=== PATIENT | male | born 1990 | race Caucasian/White ===

== ENCOUNTER 2022-08-16 17:16 | Emergency (ER) | payer BC, SELFPAY ==
[2022-08-16 17:17] VITALS: BP 153/92; PULSE 73; RESP 38; TEMP 36.6; O2SAT 96
[2022-08-16 17:20] VITALS: BP 153/92; PULSE 69
[2022-08-16] MEDS: Ketorolac 30 MG/ML VIAL IVP (17:26)
--- NOTE | 2022-08-16 17:45 | DI.CT_ITS ---
Exam(s) CT RENAL COLIC WO EXAM: CT RENAL COLIC WO CLINICAL HISTORY: pain left flank. TECHNIQUE: Imaging Protocol: Axial computed tomography images with coronal and sagittal reformatted images were created and reviewed. CONTRAST MATERIAL: Noncontrast COMPARISON: No exams were available for comparison FINDINGS: ABDOMEN: Lung Bases: Normal where visualized. Liver: Normal attenuation. No measurable mass. Gallbladder and biliary tract: No radiodense calculus or dilation. Pancreas: Normal density, no calcifications or inflammatory process. Spleen: Normal. Kidneys: Normal size, contour and axis. Mild left hydronephrosis secondary to a 4 millimeters stone i n the upper left ureter.. No masses seen. Adrenal glands: No masses seen. Abdominal Aorta: Abdominal portion non-dilated. PELVIS: Bladder: Symmetric distention, no gross wall thickening. No evidence of stones.No visible mass. Bowel: No obstruction or bowel wall thickening. Reproductive: Peritoneal cavity: No ascites, collection or mesenteric inflammatory response. Bones: Unremarkable for age.. IMPRESSION: Mild left hydronephrosis secondary to 4 millimeters stone in the upper left ureter.. RADIATION DOSE DELIVERED: 1,109.02mGy.cm Total DLP DATA REPOSITORY: All CT scans at this facility are submitted to the National Radiology Data Registry (NRDR) Dose Index Registry (DIR) with the [employer] (A[employer]). RADIATION OPTIMIZATION: All CT scans at this facility use at least one of these dose optimization te chniques: automated exposure control; mA and/or kV adjustment per patient size (includes targeted exa ms where dose is matched to clinical indication); or iterative reconstruction.
[2022-08-16 17:49] LABS: Abs Immature Grans 0.03 10^3/uL (0.0-0.06); Absolute Basophil Count 0.08 10^3/uL (0.0-0.2); Absolute Eosinophil Count 0.07 10^3/uL (0.0-0.7); Absolute Lymphocyte Count 1.63 10^3/uL (1.2-3.4); Absolute Monocyte Count 0.64 10^3/uL (0.1-0.8); Absolute Neutrophil Count 7.49 10^3/uL (1.2-6.7); Basophils % 0.8; Eosinophils % 0.7; HCT 42.1 % (40.0-50.0); HGB 14.2 g/dL (13.5-17.5); Immature Grans % 0.3; Lymphocytes % 16.4; MCH 29.4 pg (27.0-33.0); MCHC 33.7 % (32.0-36.0); MCV 87 fL (80-95); MPV 8.8 fL (8.0-11.0); Monocytes % 6.4; Neutrophils % 75.4; Platelet Count 277 10^3/uL (130-400); RBC 4.83 10^6/uL (4.36-5.78); RDW 12.2 % (11.8-14.1); WBC 9.94 10^3/uL (4.4-10.8)
--- NOTE | 2022-08-16 17:52 | W.ED.GENAD ---
Discharge Plan Disposition Patient Disposition: Home Condition: Stable Discharge Details Clinical Impression: Ureterolithiasis ED Provider: Ahmet Lopez Home Meds and New Rx's Prescriptions: New tamsulosin [Flomax] 0.4 mg capsule 0.4 mg PO DAILY Qty: 30 0RF ondansetron 4 mg tablet,disintegrating 4 mg PO Q8H PRN (Reason: nausea and vomiting) Qty: 10 0RF Discharge Instructions Instructions: Ondansetron (By mouth), Kidney Stones (ED), How to Strain Your Urine (ED) Additional Instructions: Please take ibuprofen over the counter. Take 600mg by mouth every 6 hours as needed for pain. Please take acetaminophen (tylenol) - 650mg every 6 hours by mouth as needed for pain. Please follow-up with urology. Call on Thursday. Please contact your primary care physician to arrange follow-up. Return to the ER immediately for any worsening or new concerning symptoms. Referrals: Devonte Gruber MD [ [facility] STAFF PHYSICIAN] - Medical Decision Making 1753??31-year-old male presents with rather sudden onset left flank and abdominal pain radiating into his groin. History and exam most consistent with acute renal stone. Plan to obtain CT of the abdomen pelvis. Patient received fentanyl intranasal and IV as well as Zofran ODT by EMS prior to arrival. I will give Toradol 30 mg IV for pain. Zofran for nausea. -- CT of the abdomen pelvis was interpreted by radiology: 4 mm stone mid ureter on the left. I independently reviewed the CT imaging. Patient was given acetaminophen 1 g IV and Dilaudid 1 mg IV for pain. Flomax given. On reassessment, patient noted significant improvement in pain and nausea. Plan for discharge with outpatient follow-up with urology should pain persist. I will provide strainer for urine. Usual customary discharge instructions reviewed with the patient. HPI General Mode of arrival: EMS. Date/Time Provider Initiated Documentation: 08/16/22 17:17. Limitations to Documentation: no limitations. Information obtained by: patient and EMS. HPI Narrative: 31-year-old male with rather sudden onset left sided flank and abdominal pain that radiates into his groin. Symptoms started around 330 today and have persisted. Pain is severe and sharp. No prior history of renal stone. He notes associated nausea and vomiting today. He did have loose stool yesterday. Related Data Home Medications Medication Instructions Recorded Confirmed ondansetron 4 mg disintegrating 4 mg PO Q8H PRN nausea and 08/16/22 tablet vomiting #10 tabs tamsulosin 0.4 mg capsule (Flomax) 0.4 mg PO DAILY #30 caps 08/16/22 Previous Rx's Medication Instructions Recorded ondansetron 4 mg disintegrating 4 mg PO Q8H PRN nausea and 08/16/22 tablet vomiting #10 tabs tamsulosin 0.4 mg capsule (Flomax) 0.4 mg PO DAILY #30 caps 08/16/22 Allergies Allergy/AdvReac Type Severity Reaction Status Date / Time No Known Allergies Allergy Unverified 08/16/22 17:48 General Stated Complaint: Abd Prob WILLIAM: 3 Review of Systems Constitutional Constitutional: Denies fever(s) Gastrointestinal Gastrointestinal: Reports as per HPI Genitourinary Genitourinary: Denies hematuria and Denies scrotal swelling PFSH All Active Problems (Updated 08/16/22 @ 19:56 by Ahmet Lopez MD) Ureterolithiasis (Acute) Social History Smoking/Tobacco Use Status: Current-Occasional Tobacco Type: cigars Smoking risk assessment performed?: Yes Alcohol Intake: current Alcohol Intake frequency: 3 or more drinks per day Alcohol type: hard liquor and other Substance use type: does not use Do you feel safe at home: Yes Do you feel safe in your relationship?: Yes Exam Const General: cooperative, uncomfortable, in distress and diaphoretic Orientation: alert and awake HENMT Head: normocephalic and atraumatic Mouth: moist mucous membranes Eyes Conjunctivae: normal conjunctivae Sclera: normal sclerae EOM: EOM intact bilaterally Neck Neck: trachea midline and supple Resp Auscultation: clear to auscultation bilaterally, no rales, no rhonchi and no wheezes Cardio Jugular venous pressure: no JVD Rate: regular rate and not tachycardic Rhythm: regular rhythm GI Palpation: soft, not firm, no guarding, no masses, not rigid and tender in the LLQ Skin General skin exam: no rashes or lesions noted Neuro General: patient alert, patient awake, patient oriented x3 and tone normal Extrem General: no edema Psych Appearance: grossly normal Mental Status: mental status grossly normal Speech and Movement: speech and movement normal Course Vital Signs Vital signs: Vital Signs Temperature 36.6 C 08/16/22 17:17 Pulse 73 08/16/22 17:17 Respiratory Rate 38 H 08/16/22 17:17 Blood Pressure 153/92 H 08/16/22 17:17 Pulse Oximetry 96 08/16/22 17:17 Temperature 36.6 C 08/16/22 17:17 Pulse 73 08/16/22 17:17 Respiratory Rate 38 H 08/16/22 17:17 Blood Pressure 153/92 H 08/16/22 17:17 Blood Pressure Position Supine 08/16/22 17:17 Pulse Oximetry 96 08/16/22 17:17 Oxygen Delivery Method Room Air 08/16/22 17:17 Oxygen Flow Rate 0 08/16/22 17:17 Pain Level 10 08/16/22 17:26 Lab/Test Results Lab/Test Results: Laboratory Tests Range/Units 08/16/22 17:43 WBC (4.4-10.8) 10^3/uL 9.94 RBC (4.36-5.78) 10^6/uL 4.83 Hgb (13.5-17.5) g/dL 14.2 Hct (40.0-50.0) % 42.1 MCV (80-95) fL 87 MCH (27.0-33.0) pg 29.4 MCHC (32.0-36.0) % 33.7 RDW (11.8-14.1) % 12.2 Plt Count (130-400) 10^3/uL 277 MPV (8.0-11.0) fL 8.8 Immature Gran % 0.3 Neutrophils % 75.4 Lymphocytes % 16.4 Monocytes % 6.4 Eosinophils % 0.7 Basophils % 0.8 Nucleated RBC % (0.0-0.3) % 0.0 Absolute Neutrophils (1.2-6.7) 10^3/uL 7.49 H Absolute Lymphocytes (1.2-3.4) 10^3/uL 1.63 Absolute Monocytes (0.1-0.8) 10^3/uL 0.64 Absolute Eosinophils (0.0-0.7) 10^3/uL 0.07 Absolute Basophils (0.0-0.2) 10^3/uL 0.08 PAWSS Have you Been Recently Intoxicated or Drunk Within the Last 30 days?: No Have you Ever Experienced Previous Episodes of Alcohol Withdrawal?: No Have you ever Experienced Withdrawal Seizures?: No Have you ever Experienced Delirium Tremens(DT)s?: No Have you ever undergone Alcohol Rehabilitation Treatment (i.e, inpt ot outpatient treatment programs)?: No Have you ever Experienced Blackouts?: No Have you ever Combined Alcohol with other Downers within the last 90 days?: No Have you ever Combined Alcohol with any other Substance of Abuse during the last 90 days?: No Positive Blood Alcohol level on Presentation? [PCS.BAL]: No Evidence of Increased Autonomic Activity (i.e. HR>120, tremor, sweating, agitation, nausea)?: No Result: 0
[2022-08-16 18:03] LABS: ALT 50 U/L (16-63); AST 22 U/L (15-37); Alkaline Phosphatase 56 U/L (46-116); Anion Gap 7.1 mmol/L (3-11); BUN 16 mg/dL (7-18); Bilirubin, Total 0.4 mg/dL (0.2-1.0); CO2 28.9 mmol/L (21.0-32.0); CREATININE 1.4 mg/dL (0.70-1.30); Calcium 9.1 mg/dL (8.5-10.1); Chloride 104 mmol/L (98-107); Estimated GFR 68.06 (mL/min/1.73m2); Glucose 119 mg/dL (74-106); Lipase 30 U/L (16-77); Potassium 3.7 mmol/L (3.5-5.1); Sodium 140 mmol/L (136-145); Total Protein 7.4 g/dL (6.4-8.2)
--- NOTE | 2022-08-16 18:26 | DI.VRAD_ITS ---
PROCEDURE INFORMATION: Exam: CT Abdomen And Pelvis Without Contrast Exam date and time: 08/16/2022 6:06 PM Age: 31 years old Clinical indication: Other: Left flank pain TECHNIQUE: Imaging protocol: Computed tomography of the abdomen and pelvis without contrast. COMPARISON: No relevant prior studies available. FINDINGS: Liver: Normal. No mass. Gallbladder and bile ducts: Normal. No calcified stones. No ductal dilation. Pancreas: Normal. No ductal dilation. Spleen: Normal. No splenomegaly. Adrenal glands: Normal. No mass. Kidneys and ureters: Is minimal left perinephric edema with mild caliectasis and hydroureter. There is a left mid ureteral obstructing calculus series 5, image 385. It measures 4 mm in diameter. Stomach and bowel: Unremarkable. No obstruction. No mucosal thickening. Appendix: No evidence of appendicitis. Intraperitoneal space: Unremarkable. No free air. No significant fluid collection. Vasculature: Unremarkable. No abdominal aortic aneurysm. Lymph nodes: Unremarkable. No enlarged lymph nodes. Urinary bladder: Unremarkable as visualized. Reproductive: Unremarkable as visualized. Bones/joints: Unremarkable. No acute fracture. Soft tissues: Unremarkable. IMPRESSION: Left mid ureteral obstructing calculus. Dictated and Authenticated by: Jessa Drummond MD. Ordering:NKECHI Leo MD
[2022-08-16] MEDS: Lactated Ringers 1,000 ML 1000 ML IV (18:35)
[2022-08-16] MEDS: Tamsulosin 0.4 MG CAPCR PO (18:36)
[2022-08-16] MEDS: Ondansetron 4 MG/2 ML VIAL (18:46)
[2022-08-16] MEDS: ACETAMINOPHEN 1,000 MG/100 ML BTL 400 MG IVPB (19:13)
[2022-08-16] MEDS: HYDROmorphone 2 MG/ML SYR 1 MG IVP (19:13)
[2022-08-16 19:20] VITALS: O2SAT 96
[2022-08-16 19:22] VITALS: BP 147/83; PULSE 75
[2022-08-16 20:11] VITALS: BP 144/89; PULSE 84; RESP 16; TEMP 36.9; O2SAT 95
[2022-08-16] MEDS: Ondansetron O.D.T. 4 MG TABEF, 3 TABS/BTL PO (20:11)
[2022-08-16 20:23] LABS: Bilirubin Negative (Negative); Blood Large (Negative); Clarity Clear (Clear); Glucose Negative (Negative); Ketones Negative (Negative); Leukocyte Esterase Negative (Negative); Nitrite Negative (Negative); Specific Gravity >= 1.030 (1.005-1.025); Urobilinogen 0.2 mg/dL (Up to 0.2); pH 6.5 (5-8)
[2022-08-16 20:29] LABS: Bacteria Negative HPF (Negative); C & S Indicated? No; Casts Negative LPF (Negative); Crystals Negative HPF (Negative); Epithelial Cells Few HPF (Negative); Mucus Negative (Negative); Other Cells Negative (Negative); RBC >50 HPF (0-2); WBC 0-2 HPF (0-5)
== END 2022-08-16 20:24 | disposition home or self-care (01) ==
LOC: ER 20:24
PROVIDERS: Emergency Provider Student in an Organized Health Care Education/Training Program
DX: N13.2 Hydronephrosis with renal and ureteral calculous obstruction (principal)
CPT/HCPCS: 80053; 83690; 96361; 96372; 96374; 96375; 99284; 74176; 81003; 81015; 85025; J0131; J1170; J1885; J2405

== ENCOUNTER 2022-08-24 03:57 | Emergency (ER) | payer BC, SELFPAY ==
[2022-08-24 03:59] VITALS: BP 147/86; PULSE 84; RESP 18; TEMP 36.6; O2SAT 96
[2022-08-24] MEDS: Ondansetron 4 MG/2 ML VIAL IVP (04:18)
[2022-08-24] MEDS: MORPHine 4 MG/ML SYR IVP (04:19)
[2022-08-24] MEDS: Normal Saline 1,000 ML 1000 ML IV ×2 (04:20→05:50)
--- NOTE | 2022-08-24 04:36 | W.ED.GENAD ---
Discharge Plan Disposition Patient Disposition: Home Condition: Improving Discharge Details Clinical Impression: Renal colic on left side, Ureterolithiasis Primary Care Provider: Unknown,Unknown ED Provider: Tania Washburn Home Meds and New Rx's Prescriptions: New oxycodone 5 mg tablet 5 mg PO Q6H PRN (Reason: pain) Qty: 10 0RF Continued tamsulosin [Flomax] 0.4 mg capsule 0.4 mg PO DAILY Qty: 30 0RF ondansetron 4 mg tablet,disintegrating 4 mg PO Q8H PRN (Reason: nausea and vomiting) Qty: 10 0RF Discharge Instructions Instructions: Renal Colic (ED) Additional Instructions: Your kidney function shows that it is slightly worsened compared to your previous result. Your urine sample notes large blood but no evidence of infection. The remainder of your blood tests are reassuring. Drink plenty of fluids and get plenty of rest. Continue your Flomax daily. Take the Zofran as needed and directed for nausea or vomiting. Alternate tylenol and motrin as needed and directed for pain. Take the oxycodone for pain not relieved with Tylenol or Motrin. Call your urologist tomorrow morning for a plan regarding your persistent pain and kidney stone. It may be recommended that you have nothing to eat or drink after midnight tonight as they may prepare for stent placement tomorrow. Return immediately to the emergency department if you develop any worsening or new concerning symptoms. Discharge Data Discharge Physician: Tania Washburn Medical Decision Making 0410 -- 31-year-old male with a history of appendectomy and recently diagnosed kidney stones presents with worsening left flank pain over the last several hours. He has taken approximately 800 mg of ibuprofen in the last few hours. Patient appears uncomfortable. CT imaging from 08/16/2022 revealed 4 mm stone in the left upper ureter with mild left hydronephrosis. Patient also had a CT 3 days ago [place] [facility] Discussed with patient that we could proceed with CT imaging at this time but he would rather hold due to radiation exposure. We will proceed with screening labs and give IV morphine and Zofran and IV fluids and reassess. If screening labs are concerning, will reconsider imaging. Patient reassessed and he endorses his pain is improved but he still appears uncomfortable. We will give a dose of Dilaudid IV and reassess. 0545 --patient feels better. Labs were hemolyzed and redrawn. Labs reviewed and noted white blood cell count normal at 6. Creatinine 1.6 which is slightly increased from 1 week ago at 1.4. Remainder of labs reassuring. Urinalysis notes large blood but no evidence of infection. Discussed with patient that with the slight increase in creatinine but with normal white blood cell count, no fever or signs of UTI, will hold on imaging at this time and patient is agreeable. Patient feels comfortable going home. He is advised to not eat or drink after midnight tonight and call his urologist tomorrow as they may prepare for stent placement. Usual and customary return precautions given prior to discharge. Disposition decision made weighing the risks and benefits of hospitalization versus outpatient treatment, the risk for further decompensation, and the patient's wishes. Medical Records Medical records reviewed: Yes I reviewed the patient's medical records. Medical records narrative: 08/16/[address] IMPRESSION: Mild left hydronephrosis secondary to 4 millimeters stone in the upper left ureter. Lab Data Lab results reviewed: Yes I reviewed the patient's lab results. Labs: 08/24/22 05:45 Urine - Reflex from Ua Urine Culture - Pending Laboratory Tests Range/Units 08/24/22 08/24/22 08/24/22 05:30 05:30 05:45 WBC (4.4-10.8) 10^3/uL 6.52 RBC (4.36-5.78) 10^6/uL 4.26 L Hgb (13.5-17.5) g/dL 12.5 L Hct (40.0-50.0) % 36.9 L MCV (80-95) fL 87 MCH (27.0-33.0) pg 29.3 MCHC (32.0-36.0) % 33.9 RDW (11.8-14.1) % 12.7 Plt Count (130-400) 10^3/uL 182 MPV (8.0-11.0) fL 9.0 Immature Gran % 0.0 Neutrophils % 39.0 Lymphocytes % 49.0 Atypical Lymphs % 3 Monocytes % 6.0 Eosinophils % 2.0 Basophils % 1.0 Nucleated RBC % (0.0-0.3) % 0.0 Absolute Neutrophils (1.2-6.7) 10^3/uL 2.54 Absolute Lymphocytes (1.2-3.4) 10^3/uL 3.39 Absolute Monocytes (0.1-0.8) 10^3/uL 0.39 Absolute Eosinophils (0.0-0.7) 10^3/uL 0.13 Absolute Basophils (0.0-0.2) 10^3/uL 0.07 Sodium (136-145) mmol/L 140 Potassium (3.5-5.1) mmol/L 4.1 Chloride (98-107) mmol/L 106 Carbon Dioxide (21.0-32.0) mmol/L 28.2 Anion Gap (3-11) mmol/L 5.8 BUN (7-18) mg/dL 18 Creatinine (0.70-1.30) mg/dL 1.6 H Est GFR (CKD-EPI 2020) (mL/min/1.73m2) 57.98 Glucose (74-106) mg/dL 102 Calcium (8.5-10.1) mg/dL 8.8 Total Bilirubin (0.2-1.0) mg/dL 0.4 AST (15-37) U/L 26 ALT (16-63) U/L 43 Alkaline Phosphatase (46-116) U/L 47 Total Protein (6.4-8.2) g/dL 7.4 Albumin (3.4-5.0) g/dL 3.6 Urine Color (Yellow) Yellow Urine Clarity (Clear) Clear Urine pH (5-8) 6.0 Ur Specific [place] (1.005-1.025) >= 1.030 H Urine Protein (Negative) mg/dL Trace H Urine Ketones (Negative) mg/dL Negative Urine Blood (Negative) Large H Urine Nitrite (Negative) Negative Urine Bilirubin (Negative) Negative Urine Urobilinogen (Up to 0.2) mg/dL 0.2 Ur Leukocyte Esterase (Negative) Negative Urine RBC (0-2) HPF 10-20 H Urine WBC (0-5) HPF 0-2 Ur Epithelial Cells (Negative) HPF Rare Urine Crystals (Negative) HPF Negative Urine Bacteria (Negative) HPF Few Urine Casts (Negative) LPF 0-2 Hyaline Urine Mucus (Negative) Trace Ur Culture Indicated? Yes Urine Glucose (Negative) mg/dL Negative HPI General Mode of arrival: ambulatory. Date/Time Provider Initiated Documentation: 08/24/22 04:12. Limitations to Documentation: no limitations. Information obtained by: patient. HPI Narrative: Patient is a 31-year-old male who presents with left flank pain for the past several hours. Patient was seen here on 08/16 and diagnosed with a kidney stone and his pain was able to be controlled and he was discharged home. Patient states he went [place] [facility] [place] for the same pain and had repeat lab work and CT again at that time and states he was told it appeared likely the stone did not move much. Patient states his pain was able to be controlled and he was discharged home. He states he followed up with urologist [place] [facility] [place] ago and was told to keep in contact with them if his pain did not improve. Patient states he has been taking the Flomax. He states he took a total of 802,000 mg of ibuprofen in the last several hours. Patient admits to nausea and vomiting. He states he took Zofran with some relief. He denies any known fever. Related Data Home Medications Medication Instructions Recorded Confirmed ondansetron 4 mg disintegrating 4 mg PO Q8H PRN nausea and 08/16/22 08/24/22 tablet vomiting #10 tabs tamsulosin 0.4 mg capsule (Flomax) 0.4 mg PO DAILY #30 caps 08/16/22 08/24/22 oxycodone 5 mg tablet 5 mg PO Q6H PRN pain #10 tabs 08/24/22 Previous Rx's Medication Instructions Recorded ondansetron 4 mg disintegrating 4 mg PO Q8H PRN nausea and 08/16/22 tablet vomiting #10 tabs tamsulosin 0.4 mg capsule (Flomax) 0.4 mg PO DAILY #30 caps 08/16/22 oxycodone 5 mg tablet 5 mg PO Q6H PRN pain #10 tabs 08/24/22 Allergies Allergy/AdvReac Type Severity Reaction Status Date / Time No Known Allergies Allergy Unverified 08/16/22 17:48 General Stated Complaint: FlankPain WILLIAM: 3 Review of Systems All systems reviewed & are unremarkable except as noted in HPI and below Constitutional Constitutional: Reports as per HPI, Denies chills and Denies fever(s) Eyes Eyes: Denies blurry vision ENT Ears, Nose, Mouth, and Throat: Denies dizziness, Denies sore throat and Denies throat swelling Cardiovascular Cardiovascular: Denies chest pain and Denies dyspnea Respiratory Respiratory: Denies cough and Denies dyspnea Gastrointestinal Gastrointestinal: Denies abdominal pain, Denies diarrhea and Denies vomiting Genitourinary Genitourinary: Denies hematuria and Denies dysuria Musculoskeletal Musculoskeletal: Reports back pain and Denies numbness Integumentary/Breasts Skin/Breast: Denies lesions and Denies rash Neurologic Neurologic: Denies dizziness, Denies localized weakness and Denies numbness Allergic/Immunologic Allergic/Immunologic: Denies throat swelling PFSH All Active Problems (Updated 08/24/22 @ 06:03 by Tania Washburn DO) Renal colic on left side (Acute) Ureterolithiasis (Acute) Ureterolithiasis (Acute) Medical History (Updated 08/24/22 @ 06:03 by Tania Washburn DO) Kidney stones Surgical History (Updated 08/24/22 @ 04:54 by Tania Washburn DO) History of appendectomy Social History Smoking/Tobacco Use Status: Current-Occasional Tobacco Type: cigars Smoking risk assessment performed?: Yes Alcohol Intake: current Alcohol Intake frequency: 3 or more drinks per day Alcohol type: hard liquor and other Substance use type: does not use Do you feel safe at home: Yes Do you feel safe in your relationship?: Yes Exam Const General: cooperative, uncomfortable and no acute distress Orientation: alert, awake and oriented x3 HENMT Head: normal to inspection Face and sinus: normal facial exam Eyes General: appearance normal, both eyes and all related structures Pupils: PERRL EOM: EOM intact bilaterally Neck Neck: normal visual inspection and No submandibular swelling Lymphatic: no lymphadenopathy noted Chest Chest: normal inspection of the chest and no tenderness Resp Effort & Inspection: normal respiratory effort and able to speak in complete sentences Auscultation: clear to auscultation bilaterally Cardio Rate: regular rate Rhythm: regular rhythm GI Inspection: normal to inspection Palpation: soft, not firm, not rigid and nontender Auscultation: hypoactive bowel sounds Male General Exam: Yes normal external exam Back/Spine/Pelvis Back: CVA tenderness (Left side) Skin General skin exam: no rashes or lesions noted Neuro General: patient alert, patient awake and patient oriented x3 Cognition: normal cognition Speech: speech normal Motor: muscle tone normal throughout Sensory Exam: no sensory deficits noted Extrem General: normal to inspection, full ROM, capillary refill normal, no calf tenderness bilaterally and no edema Psych Appearance: grossly normal Mental Status: mental status grossly normal Speech and Movement: speech and movement normal Affect: normal affect Course Vital Signs Vital signs: Vital Signs Temperature 97.8 F 08/24/22 03:59 Pulse 84 08/24/22 03:59 Respiratory Rate 18 08/24/22 03:59 Blood Pressure 147/86 H 08/24/22 03:59 Pulse Oximetry 96 08/24/22 03:59 Temperature 97.8 F 08/24/22 03:59 Temperature Source Skin 08/24/22 03:59 Pulse 84 08/24/22 03:59 Respiratory Rate 18 08/24/22 03:59 Respiratory Effort Normal 08/24/22 04:02 Blood Pressure 147/86 H 08/24/22 03:59 Blood Pressure Position Sitting 08/24/22 03:59 Pulse Oximetry 96 08/24/22 03:59 Oxygen Delivery Method Room Air 08/24/22 03:59 Oxygen Flow Rate 0 08/24/22 03:59 Pain Level 10 08/24/22 03:59
[2022-08-24] MEDS: HYDROmorphone 2 MG/ML SYR 1 MG IVP (04:58)
[2022-08-24 05:52] LABS: Abs Immature Grans 0.03 10^3/uL (0.0-0.06); Absolute Basophil Count 0.07 10^3/uL (0.0-0.2); HCT 36.9 % (40.0-50.0); HGB 12.5 g/dL (13.5-17.5); MCH 29.3 pg (27.0-33.0); MCHC 33.9 % (32.0-36.0); MCV 87 fL (80-95); Platelet Count 182 10^3/uL (130-400); RBC 4.26 10^6/uL (4.36-5.78); RDW 12.7 % (11.8-14.1); RDW-SD 39.8 fL; WBC 6.52 10^3/uL (4.4-10.8)
[2022-08-24 05:55] LABS: ALT 43 U/L (16-63); AST 26 U/L (15-37); Absolute Eosinophil Count 0.13 10^3/uL (0.0-0.7); Absolute Lymphocyte Count 3.39 10^3/uL (1.2-3.4); Absolute Monocyte Count 0.39 10^3/uL (0.1-0.8); Absolute Neutrophil Count 2.54 10^3/uL (1.2-6.7); Albumin 3.6 g/dL (3.4-5.0); Alkaline Phosphatase 47 U/L (46-116); Anion Gap 5.8 mmol/L (3-11); Atypical Lymphocytes % 3; BUN 18 mg/dL (7-18); Bilirubin, Total 0.4 mg/dL (0.2-1.0); CO2 28.2 mmol/L (21.0-32.0); CREATININE 1.6 mg/dL (0.70-1.30); Calcium 8.8 mg/dL (8.5-10.1); Chloride 106 mmol/L (98-107); Diff Comment Manual Differential; Estimated GFR 57.98 (mL/min/1.73m2); Glucose 102 mg/dL (74-106); Potassium 4.1 mmol/L (3.5-5.1); Sodium 140 mmol/L (136-145); Total Protein 7.4 g/dL (6.4-8.2)
[2022-08-24 05:55] LABS: Bilirubin Negative (Negative); Blood Large (Negative); Clarity Clear (Clear); Glucose Negative (Negative); Ketones Negative (Negative); Leukocyte Esterase Negative (Negative); Nitrite Negative (Negative); Specific Gravity >= 1.030 (1.005-1.025); Urobilinogen 0.2 mg/dL (Up to 0.2)
[2022-08-24 06:05] LABS: Bacteria Few HPF (Negative); Crystals Negative HPF (Negative); Epithelial Cells Rare HPF (Negative); WBC 0-2 HPF (0-5)
[2022-08-24 06:06] LABS: C & S Indicated? Yes; Casts 0-2 Hyaline LPF (Negative); Mucus Trace (Negative)
[2022-08-24 06:15] VITALS: BP 131/90; PULSE 85; RESP 18; TEMP 36.4; O2SAT 95
--- NOTE | 2022-08-26 11:35 | W.EDPROG ---
Date of service: 08/26/22 Time of Service: 11:35 Medical Decision Making This patient had a urine culture sent during a recent visit. He was growing gram-positive errol that were mixed. This is most likely a contaminant. We will continue to observe off of antibiotics. Discharge Plan Disposition Patient Disposition: Home Condition: Improving Discharge Details Clinical Impression: Renal colic on left side, Ureterolithiasis Primary Care Provider: Unknown,Unknown ED Provider: Tania Washburn Home Meds and New Rx's Prescriptions: New oxycodone 5 mg tablet 5 mg PO Q6H PRN (Reason: pain) Qty: 10 0RF Continued tamsulosin [Flomax] 0.4 mg capsule 0.4 mg PO DAILY Qty: 30 0RF ondansetron 4 mg tablet,disintegrating 4 mg PO Q8H PRN (Reason: nausea and vomiting) Qty: 10 0RF Discharge Instructions Instructions: Renal Colic (ED) Additional Instructions: Your kidney function shows that it is slightly worsened compared to your previous result. Your urine sample notes large blood but no evidence of infection. The remainder of your blood tests are reassuring. Drink plenty of fluids and get plenty of rest. Continue your Flomax daily. Take the Zofran as needed and directed for nausea or vomiting. Alternate tylenol and motrin as needed and directed for pain. Take the oxycodone for pain not relieved with Tylenol or Motrin. Call your urologist tomorrow morning for a plan regarding your persistent pain and kidney stone. It may be recommended that you have nothing to eat or drink after midnight tonight as they may prepare for stent placement tomorrow. Return immediately to the emergency department if you develop any worsening or new concerning symptoms. Discharge Data Discharge Date/Time-TO BE ENTERED AT DEPARTURE: 08/24/22 06:40 Discharge Physician: Tania Washburn
== END 2022-08-24 06:40 | disposition home or self-care (01) ==
PROVIDERS: Emergency Provider Physician Assistant
DX: N23 Unspecified renal colic (principal); N20.1 Calculus of ureter; Z87.442 Personal history of urinary calculi
CPT/HCPCS: 80053; 96361; 96374; 96375; 99284; 81003; 81015; 85025; 87086; J1170; J2270; J2405